=== PATIENT | female | born 1990 | race Caucasian/White ===

== ENCOUNTER 2018-04-04 08:50 | Outpatient (CLI) | payer MEDICAID, SELFPAY ==
[2018-04-04 09:19] LABS: Abs Immature Grans 0.01 k/cumm (0.0-0.09); Absolute Basophil Count 0.04 k/cumm (0.0-0.2); Absolute Eosinophil Count 0.19 k/cumm (0.0-0.7); Absolute Lymphocyte Count 1.82 k/cumm (1.2-3.4); Absolute Monocyte Count 0.48 k/cumm (0.11-0.7); Absolute Neutrophil Count 3.75 k/cumm (1.2-6.7); Basophils % 0.6; HCT 39.9 % (36.0-46.0); HGB 13.5 g/dL (12.0-15.5); Immature Grans % 0.2; Lymphocytes % 28.9; Mean Corp. HGB Concentration 33.8 g/dL (32.0-36.0); Mean Corpuscular Hemoglobin 29.5 pg (27.0-33.0); Mean Corpuscular Volume 87.3 fL (80-95); Mean Platelet Volume 9.5 fL (8.0-11.0); Monocytes % 7.6; Neutrophils % 59.7; Platelet Count 240 x1000/uL (130-400); RBC 4.57 m/cumm (4.00-5.20); RBC Distribution Width 13.6 % (11.7-14.6); White Blood Cell Count 6.29 k/cumm (4.4-10.8)
[2018-04-04 10:06] LABS: Iron 74 ug/dL (50-175); Total Iron Binding Capacity 290 ug/dL (250-450); Transferrin Sat 26 % (15-50)
[2018-04-04 10:30] LABS: Vitamin D 25 Total 12.6 ng/ml (30-100)
[2018-04-04 10:40] LABS: ALT 19 U/L (12-78); AST 14 U/L (15-37); Albumin 3.8 g/dL (3.4-5.0); Alkaline Phosphatase 74 U/L (46-116); Anion Gap 6.1 mmol/L (3-11); BUN 11 mg/dL (7-18); Bilirubin, Total 0.6 mg/dL (0.2-1.0); CO2 32.9 mmol/L (21.0-32.0); CREATININE 1.06 mg/dL (0.55-1.02); Calcium 9.2 mg/dL (8.5-10.1); Chloride 103 mmol/L (98-107); Cholesterol 244 mg/dL (50-200); Ferritin 53 ng/mL (8-388); Glucose 98 mg/dL (70-100); HDL Cholesterol 34 mg/dL (40-60); LDL CHOLESTEROL 179 mg/dL (<100); Potassium 4.3 mmol/L (3.5-5.1); Sodium 142 mmol/L (136-145); T4 6.9 ug/dL (4.5-12.5); TSH (W/Ref FT4) 1.92 uIU/mL (0.358-3.74); Total Protein 7.8 g/dL (6.4-8.2); Triglyceride 224 mg/dL (30-150); Vitamin B12 372 pg/mL (193-986)
[2018-04-04 11:02] LABS: FREE T4 0.94 ng/dL (0.76-1.46)
[2018-04-04 21:28] LABS: T3, Total 124 ng/dl (97-169)
== END 2018-04-04 09:10 ==
PROVIDERS: PCP Student in an Organized Health Care Education/Training Program; Visit Provider Nurse Practitioner Psychiatric/Mental Health
DX: F33.2 Major depressive disorder, recurrent severe without psychotic features (principal)
CPT/HCPCS: 36415; 80053; 80061; 82306; 83721; 82607; 82728; 83540; 83550; 84436; 84439; 84443; 84480; 85025

== ENCOUNTER 2018-04-22 14:16 | Outpatient (REF) | payer MEDICAID, SELFPAY ==
--- NOTE | 2018-04-22 13:00 | PAPFT_PTH ---
PATIENT: TALIB LOW LOC: [facility] U#:[id number] AGE/SX: 27/F ROOM: RE04/22/[address]: ASHU Potter : 1990 BED: DIS: 04/22/2018 SPEC #: [id number] RECD: 04/22/18 18:13 STATUS: LILIA RECordelia #: [id number] JEFF: 04/22/18 13:[address]: Soumya Le DEPT: [facility] Cytology RECD BY: Lorie Haas ENTERED: 04/22/18 18:13 SP TYPE: PAPFT LUIS DR: Radha Greene, Tissues: 1 - CX/ENDOCX FOR PAP SMEARS Procedures: PAP THIN PREP/[facility] Screening Comments: [id number]
[2018-04-23 14:49] LABS: Chlamydia Result Negative; GC Result Negative; Specimen Description CERVIX
== END 2018-04-22 14:36 ==
LOC: LBN 14:16
PROVIDERS: PCP Student in an Organized Health Care Education/Training Program; Visit Provider Nurse Practitioner Family
DX: Z11.3 Encounter for screening for infections with a predominantly sexual mode of transmission (principal); Z12.4 Encounter for screening for malignant neoplasm of cervix; Z11.51 Encounter for screening for human papillomavirus (HPV)
CPT/HCPCS: 87491; 87591; 88142